=== PATIENT | female | born 1980 | race Caucasian/White ===

== ENCOUNTER 2018-11-10 08:43 | Emergency (ER) | payer SELFPAY ==
[2018-11-10 08:52] VITALS: BMI 28.1
--- NOTE | 2018-11-10 10:22 | PDOC ---
History of Present Illness - General Chief Complaint: Pain Stated Complaint: LWR ABD PAIN Time Seen by Provider: 11/10/18 08:58 History Source: Patient Exam Limitations: No Limitations - History of Present Illness Travel History: No Initial Comments: 11/10/18 09:16 38-year-old female presents to ED with complaints of left suprapubic pain for the past 2 days worsening with movement patient has no urinary complaints, back pain, fever, chills, vaginal discharge or irregular menses. Patient denies history of ovarian cyst/torsion and states history of BTL. Timing/Duration: reports: intermittent Quality: reports: moderate, sharpness Abdominal Pain Onset Location: reports: suprapubic (left) Pain Radiation: reports: no radiation Activities at Onset: reports: exertion Aggravating Factors: improves with: Exertion, Movement Alleviating Factors: worse with: None Past History - Travel Traveled outside of the country in the last 30 days: No Close contact w/someone who was outside of country & ill: No - Past Medical History Allergies/Adverse Reactions: Allergies Allergy/AdvReac Type Severity Reaction Status Date / Time No Known Allergies Allergy Verified 11/10/18 08:50 Home Medications: Ambulatory Orders NK [No Known Home Medication] 11/10/18 COPD: No Hypercholesterolemia: Yes - Immunization History Immunization Up to Date: Yes - Suicide/Smoking/Psychosocial Hx Smoking Status: No Smoking History: Never smoked Number of Cigarettes Smoked Daily: 0 Hx Alcohol Use: No Drug/Substance Use Hx: No Substance Use Type: None Patient Lives Alone: No Lives with/in: spouse/SO Review of Systems - Review of Systems Able to Perform ROS?: Yes Constitutional: No: Symptoms Reported HEENTM: No: Symptoms Reported Respiratory: No: Symptoms reported Cardiac (ROS): No: Symptoms Reported ABD/GI: Yes: Abdominal cramping : Yes: Pain Integumentary: No: Symptoms Reported Neurological: No: Symptoms reported Endocrine: No: Symptoms Reported Hematologic/Lymphatic: No: Symptoms Reported *Physical Exam - Vital Signs Last Vital Signs Temp Pulse Resp BP Pulse Ox 98.6 F 80 16 111/72 100 11/10/18 08:50 11/10/18 08:50 11/10/18 08:50 11/10/18 08:50 11/10/18 08:50 - Physical Exam General Appearance: Yes: Nourished, Appropriately Dressed. No: Apparent Distress HEENT: negative: Pale Conjunctivae Neck: positive: Normal Thyroid Respiratory/Chest: positive: Lungs Clear, Normal Breath Sounds. negative: Respiratory Distress, Accessory Muscle Use Cardiovascular: positive: Regular Rhythm, Regular Rate. negative: Murmur Gastrointestinal/Abdominal: positive: Soft, Tenderness (left suprapubic) Musculoskeletal: positive: CVA Tenderness, Vertebral Tenderness Extremity: negative: Pedal Edema Integumentary: positive: Normal Color, Warm, Moist Neurologic: positive: Normal Mood/Affect, Motor Strength 5/5 (ambulatory) ED Treatment Course - RADIOLOGY Radiology Studies Ordered: Category Date Time Status TRANSVAGINAL ULTRASOUND US [US] Stat Ultrasound 11/10/18 09:42 Ordered - Medications Given in the ED: ED Medications Discontinued Medications Generic Name Dose Route Start Last Admin Trade Name Freq PRN Reason Stop Dose Admin Oxycodone/Acetaminophen 1 combo 11/10/18 09:43 11/10/18 10:10 Percocet 5/325 - PO 11/10/18 09:44 1 combo ONCE ONE Administration Medical Decision Making - Medical Decision Making 11/10/18 10:05 CC: Left suprapubic pain worsened with ambulation and movement for the past 2 days. Patient took nothing for the pain but is requesting something presently. Patient has no other complaints at this time Exam: Left suprapubic pain on exam no vaginal discharge no CVA tenderness Plan: Urinalysis urine urine culture Percocet, and transvaginall ultrasound ordered 11/10/18 12:06 Laboratory Tests 11/10/18 09:55 Urine Ketones Negative Ur Leukocyte Esterase Negative Noted simple cyst dominant follicle measuring 1.7 x 1.3 cm. Adjacent echogenic density is present measuring approximately 1.5 x 1.4 cm. Differential diagnosis includes a dermoid. Normal vascular flow in the right ovary. No free fluid in the cul-de-sac. Left ovary is normal-appearing with normal vascular flow. A nonemergent MRI of the pelvis as needed for further evaluation. Patient seeks OBG/[facility] care at [facility] but requesting another physician. Patient will be given referral and told to call for an appointment. *DC/Admit/Observation/Transfer Diagnosis at time of Disposition: Suprapubic pain, acute - Discharge Dispostion Disposition: HOME Condition at time of disposition: Improved - Referrals Referrals: Emmy Franklin MD [Staff Physician] - - Patient Instructions Printed Discharge Instructions: DI for Ovarian Cyst, DI for Abdominal Pain- Adult Additional Instructions: please take Motrin 600 mg every 8 hours as needed or Percocet as needed for severe pain. Please follow-up with DENTAL SECRETARY and take copy of your ultrasound with you. - Post Discharge Activity
[2018-11-10 11:52] LABS: URINE APPEARANCE Clear; URINE BILIRUBIN Negative (NEGATIVE); URINE COLOR Yellow; URINE GLUCOSE (UA) Negative (NEGATIVE); URINE KETONE Negative (NEGATIVE); URINE LEUK ESTERASE Negative (NEGATIVE); URINE NITRITE Negative (NEGATIVE); URINE PROTEIN Negative (NEGATIVE); URINE UROBILINOGEN 0.2 mg/dL (0.2-1.0)
[2018-11-10 12:22] VITALS: BP 110/65; PULSE 73; TEMP 98
== END 2018-11-10 12:22 | disposition home or self-care (01) ==
LOC: JER 08:43
DX: R10.30 Lower abdominal pain, unspecified (principal); N83.201 Unspecified ovarian cyst, right side
CPT/HCPCS: 76830-TC; 81003; 84703; 87086; 99283-25